=== PATIENT | male | born 1930 | race Caucasian/White ===

== ENCOUNTER 2017-07-10 14:56 | Inpatient (IN) | payer OTHER ==
[~2017-07-10] VITALS: Ht 160 cm; Wt 67.1 kg
[~2017-07-10 14:56] MED LIST: BENA10TA25 PO; COZ50 PO; DOCU-299 PO; FERR-212 PO; FINA5TAB1 PO; GABA100C PO; HUM SC; LANTUS SUBQ; LORA10TA19 PO; MAGN400S60 PO; MIRABULK PO; MULT-1184 PO; TAMS0.4C96 PO; [UNRECOGNIZED DRUG - CODE] PO
[2017-07-10 15:13] VITALS: BP 73/36
--- NOTE | 2017-07-10 15:51 | NUR ---
Patient back from XRAY taken to bed 04 via wheelchair per tech.
--- NOTE | 2017-07-10 15:55 | NUR ---
PT BIB FAMILY FOR EVALUATION OF RIGHT SHOULDER PAIN S/P FALL 1 HOUR PRIOR TO ARRIVAL AT ER. HX HYPOTENSION, DM. DENIES N/V/D; SKIN IS PINK/WARM/DRY; AAOX4; LUNGS CLEAR BL; HR EVEN AND REGULAR; PT DENIES ANY FEVER, CP, SOB, OR COUGH AT THIS TIME; PATIENT STATES PAIN OF 8/10 AT THIS TIME; VSS; PATIENT POSITIONED FOR COMFORT; HOB ELEVATED; BEDRAILS UP X2; BED DOWN. ER MD MADE AWARE OF PT STATUS.
[2017-07-10] MEDS ORDERED: NACL 0.9% 500 ML IV ONE (16:20)
--- NOTE | 2017-07-10 16:43 | NUR ---
X RAY AT BEDSIDE.
[2017-07-10 17:30] LABS: HEMATOCRIT 39.6 % (36-52); HEMOGLOBIN 13.1 g/dL (12.0-18.0); MEAN CORPUSCULAR HEMOGLOBIN 31 pg (27-31); MEAN CORPUSCULAR HGB CONC 33 g/dL (33-37); MEAN CORPUSCULAR VOLUME 94 fL (80-94); PLATELET COUNT (AUTO) 144 K/uL (140-450); RED BLOOD CELL COUNT(AUTO) 4.24 MIL/uL (4.20-6.10); RED CELL DISTRIBUTION WIDTH 13.2 % (11.6-13.7); WHITE BLOOD COUNT (AUTO) 12.7 K/uL (4.8-10.8)
[2017-07-10 17:35] LABS: ANION GAP 16.9 (8-16); CARBON DIOXIDE 23.3 mmol/L (21-32); CHLORIDE 103 mmol/L (98-107); CREATININE 1.4 mg/dL (0.7-1.3); GLUCOSE 320 mg/dL (74-106); POTASSIUM 4.2 mmol/L (3.5-5.1); SODIUM SERUM 139 mmol/L (136-145); UREA NITROGEN, BLOOD 30 mg/dL (7-18)
[2017-07-10 17:42] LABS: LYMPHOCYTES % (MANUAL) 8 % (20-46); MONOCYTES % (MANUAL) 3 % (5-12)
[2017-07-10 17:46] LABS: ALBUMIN 3.2 g/dL (3.4-5.0); ASPARTATE AMINOTRANSFERASE 11 U/L (15-37); TOTAL BILIRUBIN 1.3 mg/dL (0.0-1.0)
[2017-07-10 17:47] LABS: PROTHROMBIN TIME 11.6 secs (10.8-13.4)
[2017-07-10] MEDS ORDERED: NACL 0.9% 1,000 ML IV SCH (18:21)
[2017-07-10] MEDS ORDERED: ONDANSETRON 4 MG/2 ML VIAL IVP PRN (18:25)
[2017-07-10] MEDS ORDERED: ACETAMINOPHEN 325 MG TAB PO PRN (18:25)
--- NOTE | 2017-07-10 18:49 | NUR ---
RECEIVED REPORT FROM ER NURSE LENORA GELLER.
[2017-07-10 18:53] LABS: CHOL/HDL RATIO 3.6 (1-4.5); FREE T4 (FREE THYROXINE) 1.18 ng/dL (0.76-1.46); MAGNESIUM 1.5 mg/dL (1.8-2.4); PHOSPHORUS 2.7 mg/dL (2.5-4.9); THYROID STIMULATING HORMONE 2.93 uIU/mL (0.34-3.74)
--- NOTE | 2017-07-10 18:58 | NUR ---
GAVE REPORT TO YIMI CALDERON
--- NOTE | 2017-07-10 18:59 | NUR ---
APatient will be admitted to care of DR HOFFMAN. Admited to TELE. Will go to room 122B. Belongings list completed. Report to YIMI CALDERON.
[2017-07-10 19:00] VITALS: BP 148/75
--- NOTE | 2017-07-10 19:00 | NUR ---
RECEIVED PT FROM ER ASSISTED BY ER NURSE PER WHEELCHAIR. PT ALERT ORIENTED X4. PT WITH RIGHT ARM SLING. UNABLE TO AMBULATE. WITH DAUGHTER AT BEDSIDE. NO SOB NOTED. PT COMPLAINS OF PAIN ON RIGHT ARM. SAFETY PRECAUTION IN PLACE. VITAL SIGNS TAKEN AND RECORDED. CALL LIGHT WITHIN REACH.
[2017-07-10] MEDS ORDERED: DEXTROSE 50% 50 ML SYR IVP PRN (19:20)
[2017-07-10] MEDS ORDERED: MECLIZINE 25 MG TAB PO PRN (19:30)
--- NOTE | 2017-07-10 19:40 | NUR ---
RECEIVED REPORT FROM DAY RN, PATIENT JUST ADMITTED TO THE TELE UNIT. PATIENT RESTING IN BED, ORIENTED X2. FAMILY MEMBERS AT BEDSIDE. PATIENT STATED, HE HAS PAIN 9/10 ON HIS RIGHT SHOULDER. INFORMED PATIENT THAT I WILL GIVE HIM PAIN MEDICATION. FLUSHED IV WITH 10ML NS, IV INTACT AND PATENT. CALL LIGHT WITHIN REACH, SAFETY MEASURE ENSURED, WILL CONTINUE TO MONITOR.
[2017-07-10] MEDS ORDERED: MAG SULF 2000 MG/WATER PREMIX 50 ML IV ONE (19:50)
[2017-07-10 20:00] VITALS: BP 150/80
[2017-07-10] MEDS: MORPHINE SULFATE 2 MG/ML SYR IVP PRN (20:00)
--- NOTE | 2017-07-10 20:05 | NUR ---
BP 150/80, HR 90, PAIN MEDICATION GIVEN, WILL CONTINUE TO MONITOR.
[2017-07-10] MEDS: DOCUSATE SODIUM 100 MG GELCAP PO SCH (20:24)
[2017-07-10] MEDS: FAMOTIDINE 20 MG TAB PO SCH (20:25)
[2017-07-10] MEDS: TAMSULOSIN 0.4 MG CAP PO SCH (20:25)
[2017-07-10] MEDS ORDERED: LORATADINE 10 MG TAB PO SCH (21:00)
[2017-07-10] MEDS: BLOOD GLUCOSE MONITORING 1 DEV DEV FS SCH (21:02)
--- NOTE | 2017-07-10 21:15 | NUR ---
RESIDENT CARE AIDE AND DR. DONALD SHAH AT BEDSIDE PER MD GAN TO PERFORM EKG TONIGHT OR IN AM
[2017-07-10] MEDS: INSULIN LISPRO SLIDING SCALE 100 UNITS/ML VIAL SUBQ PRN (21:24)
[2017-07-10] MEDS: INSULIN DETEMIR 100 UNITS/ML 10 ML VIAL SUBQ SCH (21:24)
[2017-07-10] MEDS: HYDROcodone/APAP 7.5/325 MG 1 TAB PO PRN (22:01)
--- NOTE | 2017-07-10 22:05 | NUR ---
PATIENT STATED HE STILL FELT MODERATE PAIN 5/10, NORCO GIVEN ORDERED, WILL CONTINUE TO MONITOR.
--- NOTE | 2017-07-10 23:09 | NUR ---
PATIENT OFF THE UNIT TO GET HEAD CT. NO S/S OF ACUTE DISTRESS NOTED WHEN TRANSFERRED
--- NOTE | 2017-07-10 23:20 | NUR ---
PATIENT IS BACK TO THE ROOM. NO S/S OF ACUTE DISTRESS NOTED, WILL CONTINUE TO MONITOR.
[2017-07-10 23:36] LABS: APPEARANCE,URINE HAZY (CLEAR); BILIRUBIN,URINE NEGATIVE (NEGATIVE); BLOOD, URINE TRACE-I (NEGATIVE); COLOR,URINE YELLOW (YELLOW); LEUKOCYTE ESTERASE ,URINE 2+ (NEGATIVE); NITRITE, URINE NEGATIVE (NEGATIVE); UGLUCOSE 2+ (NEGATIVE)
[2017-07-10 23:48] LABS: BARBITURATE, URINE NEG. ng/ml (NEG <=200); BENZODIAZEPINE, URINE NEG. ng/mL (NEG <=200); CANNABINOID, URINE NEG. ng/mL (NEG <=50); COCAINE, URINE NEG. ng/mL (NEG <=300); OPIATE, URINE NEG. ng/mL (NEG <=2000); PHENCYCLIDINE SCREEN,URINE NEG. ng/mL (NEG <=25)
[2017-07-11] VITALS: BP 94/53
[2017-07-11 00:11] LABS: RBC,URINE 0-5 (RARE) /HPF (0-5); WBC,URINE TOO MANY TO COUNT /HPF (0-5); YEAST,URINE Moderate /HPF (None Seen)
[2017-07-11] MEDS: FLUCONAZOLE 100 MG TAB PO SCH (01:10)
[2017-07-11] MEDS: CLINDAMYCIN 600 MG in DEXTROSE 5% 50 ML IV SCH ×4 (01:12→18:12)
[2017-07-11] MEDS ORDERED: CLINDAMYCIN 600 MG/4 ML VIAL ONE (01:12)
--- NOTE | 2017-07-11 01:24 | NUR ---
CLEOCIN STARTED, PATIENT TOLERATED WELL, WILL CONTINUE TO MONITOR.
--- NOTE | 2017-07-11 01:34 | NUR ---
DIFLUCAN IS NOT ADMINISTERED, DR. SHAH IS AWARE AND SAID," PLEASE GIVE THE FIRST DOSE TOMORROW."
--- NOTE | 2017-07-11 02:05 | NUR ---
PATIENT IS SLEEPING , RESPIRATION EVEN AND UNLABORED, NO S/S OF ACUTE DISTRESS NOTED, SAFETY MEASURE ENSURED, WILL CONTINUE TO MONITOR.
[2017-07-11] MEDS: MORPHINE SULFATE 2 MG/ML SYR IVP PRN ×3 (03:06→13:09)
--- NOTE | 2017-07-11 03:10 | NUR ---
PATIENT STATED PAIN 9/10, PAIN MEDICATION GIVEN, WILL CONTINUE TO MONITOR.
[2017-07-11 04:00] VITALS: BP 130/69
[2017-07-11] MEDS ORDERED: DEXT 5% / NACL 0.9% 500 ML IV SCH (04:05)
[2017-07-11] MEDS ORDERED: NACL 0.9% 500 ML IV SCH (06:00)
[2017-07-11 06:24] LABS: BASOPHILS # (AUTO) 0.2 K/uL (0.00-0.22); BASOPHILS % (AUTO) 2.3 % (0.0-2.0); EOSINOPHILS # (AUTO) 0.1 K/uL (0-0.4); EOSINOPHILS % (AUTO) 1.2 % (0.0-4.0); HEMATOCRIT 36.5 % (36-52); HEMOGLOBIN 12.1 g/dL (12.0-18.0); LYMPHOCYTES # (AUTO) 1.1 K/uL (2.0-11.5); LYMPHOCYTES % (AUTO) 15.5 % (20.5-51.1); MEAN CORPUSCULAR HEMOGLOBIN 31 pg (27-31); MEAN CORPUSCULAR HGB CONC 33 g/dL (33-37); MEAN CORPUSCULAR VOLUME 93 fL (80-94); MONOCYTES # (AUTO) 0.8 K/uL (0.8-1.0); MONOCYTES % (AUTO) 11.2 % (1.7-9.3); NEUTROPHILS # (AUTO) 4.8 K/uL (1.8-7.7); NEUTROPHILS % (AUTO) 69.8 % (42.2-75.2); PLATELET COUNT (AUTO) 145 K/uL (140-450); RED BLOOD CELL COUNT(AUTO) 3.93 MIL/uL (4.20-6.10)
[2017-07-11 06:43] LABS: CARBON DIOXIDE 25.6 mmol/L (21-32); CHLORIDE 107 mmol/L (98-107); CREATININE 0.9 mg/dL (0.7-1.3); GLUCOSE 130 mg/dL (74-106); POTASSIUM 3.6 mmol/L (3.5-5.1); SODIUM SERUM 140 mmol/L (136-145); UREA NITROGEN, BLOOD 24 mg/dL (7-18)
[2017-07-11] MEDS: BLOOD GLUCOSE MONITORING 1 DEV DEV FS SCH ×4 (06:44→21:00)
--- NOTE | 2017-07-11 06:55 | NUR ---
PT IS SLEEPING AT THIS TIME NO S/S OF ACUTE DISTRESS NOTED, RESPIRATION EVEN AND UNLABORED, WILL CONTINUE TO MONITOR.
[2017-07-11 06:57] LABS: MAGNESIUM 2.3 mg/dL (1.8-2.4); PHOSPHORUS 2.6 mg/dL (2.5-4.9)
--- NOTE | 2017-07-11 07:35 | NUR ---
ENDORSED PLAN OF CARE TO DAY RN. PATIENT RESTING IN BED, IN STABLE CONDITION, NO S/S OF ACUTE DISTRESS.
--- NOTE | 2017-07-11 07:40 | NUR ---
RECEIVED PT REPORT FROM NIGHT NURSE AT BEDSIDE. PATIENT IS AAOX2 AND SHOWS NO S/S OF ACUTE DISTRESS ON RA. PT SKIN IS INTACT WITH ABRASION TO THE R ARM AND BLE. PATIENT STATES PAIN OF 9/10 ON THE RA. IV NOTED ON THE L H WITH IVF'S INFUSING WELL. PATIENT IS AWARE OF POC FOR TODAY AND VERBALIZED UNDERSTANDING HOWEVER NEEDS CONSTANT REINFORCEMENT. THE BED IS IN LOW POSITION AND CALL LIGHT WITHIN REACH.
[2017-07-11 08:00] VITALS: BP 128/71
[2017-07-11] MEDS ORDERED: FERROUS SULFATE 325 MG TABEC PO SCH (09:00)
[2017-07-11] MEDS ORDERED: VITAMIN B COMPLEX W/C 1 TAB PO SCH (09:00)
[2017-07-11] MEDS ORDERED: [UNRECOGNIZED DRUG - OTHER] PO SCH (09:00)
[2017-07-11] MEDS ORDERED: VIT B COMP PO SCH (09:00)
[2017-07-11] MEDS ORDERED: VIT E PO SCH (09:00)
[2017-07-11] MEDS ORDERED: IRON PO SCH (09:00)
[2017-07-11] MEDS ORDERED: MAGNESIUM OXIDE 400 MG TAB PO SCH (09:19)
[2017-07-11] MEDS: NACL 0.9% 1,000 ML IV SCH ×3 (09:34→17:04)
[2017-07-11] MEDS: LACTOBACILLUS RHAMNOSUS GG 1 EACH CAP PO SCH (09:36)
[2017-07-11] MEDS: FERROUS SULFATE 325 MG TABEC PO SCH (09:36)
[2017-07-11] MEDS: MULTIVITAMIN/MINERALS 1 TAB PO SCH (09:36)
[2017-07-11] MEDS: FAMOTIDINE 20 MG TAB PO SCH (09:37)
[2017-07-11] MEDS: ATORVASTATIN 20 MG TAB PO SCH (09:37)
[2017-07-11] MEDS: GABAPENTIN 100 MG CAP PO SCH (09:37)
[2017-07-11] MEDS: DOCUSATE SODIUM 100 MG GELCAP PO SCH ×2 (09:37→21:00)
[2017-07-11] MEDS: FINASTERIDE 5 MG TAB PO SCH (09:38)
[2017-07-11] MEDS: LORATADINE 10 MG TAB PO SCH (09:39)
[2017-07-11] MEDS: CALCIUM CIT/VIT-D 315MG/200IU 1 TAB PO SCH (09:51)
--- NOTE | 2017-07-11 10:11 | NUR ---
PATIENT STATES 8/10 R ARM PAIN AND MORPHINE 2 MG IVP MINIMALLY HELPS. WILL NOTIFY DR PARTIDA.
--- NOTE | 2017-07-11 10:53 | NUR ---
CM NOTE INITIAL REVIEW FAXED TO [facility] [phone] FLAVIA TOWNSEND [phone]
--- NOTE | 2017-07-11 11:20 | NUR ---
PATIENT HAS BEEN SCREENED AND CATEGORIZED MODERATE NUTRITION RISK. PATIENT WILL BE SEEN WITHIN 3-5 DAYS OF ADMISSION. 07/13/17 - 07/15/[address]
[2017-07-11 12:00] VITALS: BP 140/69
--- NOTE | 2017-07-11 13:08 | NUR ---
PATIENT STATES 10/10 PAIN WILL ADMINISTER MORPHINE 2 MG IVP. REASSESS IN 30 MIN.
[2017-07-11] MEDS: INSULIN LISPRO SLIDING SCALE 100 UNITS/ML VIAL SUBQ PRN (13:20)
--- NOTE | 2017-07-11 13:30 | NUR ---
2 PERSON ASSIST TO BSC. PATIENT WAS COMPLAINING OF PAIN ON THE RIGHT SHOULDER STILL. DR CHAVEZ WAS NOTIFIED OF MORPHINE 2 MG IVP NOT HELPFUL WITH HIS PAIN. STATED HE WILL PLACE IN ORDERS.
[2017-07-11] MEDS ORDERED: KETOROLAC 15 MG/ML VIAL IM SCH (14:10)
--- NOTE | 2017-07-11 14:10 | NUR ---
PATIENT SHOWS NO S/S OF ACUTE DISTRESS ON ROOM AIR. PATIENT IS RESTING COMFORTABLY IN BED WITH DAUGHTER AT BEDSIDE.
--- NOTE | 2017-07-11 15:15 | NUR ---
PATIENT IS SLEEPING AND SHOWS NO S/S OF ACUTE DISTRESS ON ROOM AIR.
[2017-07-11 16:00] VITALS: BP 105/61
--- NOTE | 2017-07-11 17:15 | NUR ---
PATIENT HAS FAMILY AT BEDSIDE EATING DINNER AND TOLERATING WELL. PATIENT DENIES PAIN AT THIS TIME. BED IS LOWERED WITH CALL LIGHT WITHIN REACH. ALL NEEDS MET AT THIS TIME.
--- NOTE | 2017-07-11 19:00 | NUR ---
PATIENT ENDORSED IN STABLE CONDITION TO NIGHT NURSE FOR CONTINUITY OF CARE.
--- NOTE | 2017-07-11 19:05 | NUR ---
RECEIVED REPORT FROM AM NURSE. PT IS AWAKE AND ALERT. ROOM AIR. DAUGHTER IS AT THE BEDSIDE. IV ACCESS ASYMPTOMATIC AND PATENT. PLAN OF CARE DISCUSSED, PT AND FAMILY VERBALIZED UNDERSTANDING. NO SIGNS OF ACUTE DISTRESS, BED ON LOW POSITION, BILATERAL HALF SIDE RAILS UP, CALL LIGHT WITHIN REACH, WILL CONTINUE TO MONITOR.
[2017-07-11 20:00] VITALS: BP 128/72
[2017-07-12] VITALS: BP 121/66
[2017-07-12] MEDS: DOCUSATE SODIUM 100 MG GELCAP PO SCH ×3 (00:23→21:10)
[2017-07-12] MEDS: FAMOTIDINE 20 MG TAB PO SCH ×3 (00:23→21:10)
[2017-07-12] MEDS: TAMSULOSIN 0.4 MG CAP PO SCH ×2 (00:23→21:10)
[2017-07-12] MEDS: NACL 0.9% 1,000 ML IV SCH ×4 (00:23→18:31)
[2017-07-12] MEDS: CLINDAMYCIN 600 MG in DEXTROSE 5% 50 ML IV SCH ×4 (00:24→17:13)
--- NOTE | 2017-07-12 00:25 | NUR ---
PT REFUSED COLACE MEDICATION. BENEFITS AND RISKS EXPLAINED, PT VERBALIZED UNDERSTANDING.
--- NOTE | 2017-07-12 01:05 | NUR ---
IV ACCESS ON LEFT HAND ACCIDENTALLY PULLED OUT BY PATIENT. NEW IV ACCESS STARTED SUCCESSFULLY ON LEFT ARM, PT TOLERATED WELL. WILL CONTINUE TO MONITOR.
[2017-07-12] MEDS: INSULIN DETEMIR 100 UNITS/ML 10 ML VIAL SUBQ SCH ×2 (01:19→21:17)
[2017-07-12] MEDS: HYDROmorphone 1 MG/ML AMP IVP PRN ×2 (01:20→15:34)
--- NOTE | 2017-07-12 02:15 | NUR ---
PT IS SLEEPING. DAUGHTER IS AT THE BEDSIDE. SHOWING NO SIGNS OF ACUTE DISTRESS. BED ON LOW POSITION, BILATERAL HALF SIDE RAILS UP, CALL LIGHT WITHIN REACH. WILL CONTINUE TO MONITOR.
[2017-07-12 04:00] VITALS: BP 133/74
[2017-07-12] MEDS: BLOOD GLUCOSE MONITORING 1 DEV DEV FS SCH ×4 (06:44→21:15)
--- NOTE | 2017-07-12 07:10 | NUR ---
ENDORSED PT TO AM NURSE TO CONTINUITY OF CARE, PT IS IN STABLE CONDITION.
--- NOTE | 2017-07-12 07:15 | NUR ---
RECEIVED PT REPORT FROM NIGHT NURSE AT BEDSIDE. PATIENT IS AAOX2 AND SHOWS NO S/S OF ACUTE DISTRESS ON RA. PT SKIN IS INTACT WITH ABRASION TO THE R ARM AND BLE. PATIENT STATES PAIN OF 4/10 ON THE R ARM. IV NOTED ON THE L FA WITH IVF'S INFUSING WELL. PATIENT IS AWARE OF POC FOR TODAY AND VERBALIZED UNDERSTANDING HOWEVER NEEDS CONSTANT REINFORCEMENT. PATIENT FAMILY AT BEDSIDE AND VERBALIZED UNDERSTANDING OF CARE. THE BED IS IN LOW POSITION AND CALL LIGHT WITHIN REACH.
[2017-07-12 07:28] LABS: ANION GAP 10.9 (8-16); BASOPHILS # (AUTO) 0.1 K/uL (0.00-0.22); BASOPHILS % (AUTO) 1.7 % (0.0-2.0); CARBON DIOXIDE 26.4 mmol/L (21-32); CHLORIDE 102 mmol/L (98-107); CREATININE 0.8 mg/dL (0.7-1.3); EOSINOPHILS % (AUTO) 0.6 % (0.0-4.0); GLUCOSE 93 mg/dL (74-106); HEMATOCRIT 35.3 % (36-52); HEMOGLOBIN 11.6 g/dL (12.0-18.0); LYMPHOCYTES # (AUTO) 0.8 K/uL (2.0-11.5); LYMPHOCYTES % (AUTO) 11.7 % (20.5-51.1); MEAN CORPUSCULAR HEMOGLOBIN 31 pg (27-31); MEAN CORPUSCULAR HGB CONC 33 g/dL (33-37); MEAN CORPUSCULAR VOLUME 93 fL (80-94); MONOCYTES # (AUTO) 0.6 K/uL (0.8-1.0); MONOCYTES % (AUTO) 8.5 % (1.7-9.3); NEUTROPHILS # (AUTO) 5.4 K/uL (1.8-7.7); NEUTROPHILS % (AUTO) 77.5 % (42.2-75.2); PLATELET COUNT (AUTO) 136 K/uL (140-450); POTASSIUM 3.3 mmol/L (3.5-5.1); RED BLOOD CELL COUNT(AUTO) 3.79 MIL/uL (4.20-6.10); RED CELL DISTRIBUTION WIDTH 13.2 % (11.6-13.7); SODIUM SERUM 136 mmol/L (136-145); UREA NITROGEN, BLOOD 15 mg/dL (7-18); WHITE BLOOD COUNT (AUTO) 6.9 K/uL (4.8-10.8)
--- NOTE | 2017-07-12 07:30 | NUR ---
RECEIVED REPORT FROM AM NURSE. PT IS SLEEPING. DAUGHTER IS AT THE BEDSIDE. SHOWING NO SIGN SOF ACUTE DISTRESS. URINAL AT THE BEDSIDE. IV ACCESS ASYMPTOMATIC AND PATENT. ON ROOM AIR PLAN OF CARE DISCUSSED, PT VERBALIZED UNDERSTANDING. BED ON LOW POSITION, BILATERAL HALF SIDE RAILS UP, CALL LIGHT WITH IN REACH, WILL CONTINUE TO MONITOR Addendum: 07/13/17 at 0649 by Aislinn Harding RN DISREGARD ABOVE NOTE. WRING TIME
[2017-07-12 07:48] VITALS: BP 100/53
[2017-07-12] MEDS: FERROUS SULFATE 325 MG TABEC PO SCH (08:47)
[2017-07-12] MEDS: CALCIUM CIT/VIT-D 315MG/200IU 1 TAB PO SCH (08:48)
[2017-07-12] MEDS: LORATADINE 10 MG TAB PO SCH (08:50)
[2017-07-12] MEDS: GABAPENTIN 100 MG CAP PO SCH (08:50)
[2017-07-12] MEDS: FINASTERIDE 5 MG TAB PO SCH (08:51)
[2017-07-12] MEDS: MULTIVITAMIN/MINERALS 1 TAB PO SCH (08:51)
[2017-07-12] MEDS: ATORVASTATIN 20 MG TAB PO SCH (08:51)
[2017-07-12] MEDS: LACTOBACILLUS RHAMNOSUS GG 1 EACH CAP PO SCH (08:51)
[2017-07-12] MEDS: FLUCONAZOLE 100 MG TAB PO SCH (08:51)
[2017-07-12] MEDS: HYDROcodone/APAP 7.5/325 MG 1 TAB PO PRN ×2 (08:52→13:02)
--- NOTE | 2017-07-12 08:55 | NUR ---
ADMINISTERED SCHEDULED MEDICATIONS. PATIENT TOLERATED WELL. PATIENT WAS GIVEN NORCO 7.5/325 MG PO FOR 4/10 R ARM PAIN AND FOR PHYSICAL THERAPY. PATIENT'S NEEDS MET AT THIS TIME. DAUGHTER AT BEDSIDE. WILL CONTINUE TO MONITOR.
--- NOTE | 2017-07-12 10:30 | NUR ---
PT BEING SEEN DR PARTIDA. POC WAS EXPLAINED BY AND FAMILY AND PT VERBALIZED UNDERSTANDING. ALL NEEDS MET AT THIS TIME WILL CONTINUE TO MONITOR. DR CATALAN WAS NOTIFIED OF POTASSIUM OF 3.3 AND DOSE OF TORADOL 15 MG IM GIVEN YESTERDAY WAS HELPFUL FOR PT. IS TO PLACE ORDERS.
--- NOTE | 2017-07-12 11:25 | NUR ---
ADMINISTERED SCHEDULED MEDICATIONS. PATIENT STATES TOLERABLE PAIN OF 3/10 R ARM PAIN. WILL CONTINUE TO ASSESS FOR PAIN. PATIENT FAMILY MEMBER AT BEDSIDE. PT DENIES SOB. BED IN LOW POSITION AND CALL LIGHT WITHIN REACH. ALL NEEDS MET AT THIS TIME.
[2017-07-12] MEDS: INSULIN LISPRO SLIDING SCALE 100 UNITS/ML VIAL SUBQ PRN ×2 (11:45→21:24)
[2017-07-12 12:00] VITALS: BP 118/69
[2017-07-12] MEDS ORDERED: POTASSIUM CHLORIDE 40 MEQ, LIDOCAINE 1% 25 MG in NACL 0.9% 250 ML IV SCH (12:30)
--- NOTE | 2017-07-12 13:05 | NUR ---
ADMINISTERED 40 MEQ KCL IV AND PT C/O 4/10 R ARM PAIN AND WAS ADMINISTERED NORCO 7.5/325 MG PO. WILL REASSESS IN ONE HR.
--- NOTE | 2017-07-12 14:05 | NUR ---
PATIENT IS SLEEPING AND SHOWS NO S/S OF ACUTE DISTRESS ON ROOM AIR.
--- NOTE | 2017-07-12 15:00 | NUR ---
PATIENT INSISTED ON WEARING A BUTTON UP SHIRT AND WAS NOT ABLE TO. PT STARTED TO C/O 8/10 PAIN. WILL ADMINISTER DILAUDID 1 MG IVP.
--- NOTE | 2017-07-12 15:35 | NUR ---
ADMINISTERED DILAUDID 1 MG IVP FOR 8/10 R ARM PAIN. WILL REASSESS IN 30 MIN.
[2017-07-12 16:00] VITALS: BP 135/76
--- NOTE | 2017-07-12 16:05 | NUR ---
PATIENT IS SLEEPING AND SHOWS NO S/S OF ACUTE DISTRESS ON ROOM AIR. FAMILY AT BEDSIDE.
--- NOTE | 2017-07-12 16:32 | NUR ---
FAXED CONCURRENT REVIEW TO [facility] [phone] PHONE KRISTIAN [phone]
--- NOTE | 2017-07-12 17:25 | NUR ---
ADMINISTERED SCHEDULED MEDICATIONS. IV ABX INFUSING WELL.
[2017-07-12] MEDS ORDERED: KETOROLAC 30 MG/ML VIAL IVP ONE (18:15)
[2017-07-12] MEDS ORDERED: PNEUMOCOCCAL VACCINE 23 MCG/0.5 ML VIAL IMVAC SCH (18:15)
[2017-07-12] MEDS ORDERED: KETOROLAC 15 MG/ML VIAL IVP SCH (18:30)
--- NOTE | 2017-07-12 19:13 | NUR ---
PT IS SLEEPING AND DAUGHTER IS AT BEDSIDE. PT SHOWS NO S/S OF ACUTE DISTRESS ON ROOM AIR. PT REPORT WAS GIVEN AT BEDSIDE, PT ENDORSED IN STABLE CONDITION.
--- NOTE | 2017-07-12 19:30 | NUR ---
RECEIVED REPORT FROM AM NURSE. PT IS SLEEPING. DAUGHTER IS AT THE BEDSIDE. SHOWING NO SIGN SOF ACUTE DISTRESS. URINAL AT THE BEDSIDE. IV ACCESS ASYMPTOMATIC AND PATENT. ON ROOM AIR PLAN OF CARE DISCUSSED, PT VERBALIZED UNDERSTANDING. BED ON LOW POSITION, BILATERAL HALF SIDE RAILS UP, CALL LIGHT WITH IN REACH, WILL CONTINUE TO MONITOR
[2017-07-12 20:00] VITALS: BP 155/70
--- NOTE | 2017-07-12 20:52 | NUR ---
1230 MET WITH PT AND FAMILY MEMBERS DAUGHTER BELLO, SON KAYLA AND GRANDSON TO DISCUSS DISCHARGE PLAN. PT LIVES WITH KAYLA WHO IS THE PT'S PRIMARY CAREGIVER. PER KAYLA PTS PRIOR LEVEL OF FUNCTION WAS AMBULATORY WITH NO ASSISTIVE DEVICE AND HE ASSISTED WITH ADLS INCLUDING MEAL PREP, MEDICATION ADMINISTRATION, TRANSPORTATION STATED THAT PT DOES HAVE SOME DEMENTIA AND NEEDS SUPERVISION. KAYLA VERBALIZED HIS CONCERN THAT PT NOW REQUIRES ASSISTANCE FOR AMBULATION. DISCUSSED THAT THE RECOMMENDATION IS FOR PT TO HAVE PHYSICAL THERAPY IN SNF WITH RESIDENTIAL PLAN TO RETURN HOME. DAUGHTER AND GRANDSON VOICED THEIR RESISTANCE TO SNF PLACEMENT DUE TO REPORTS FROM FRIENDS AND FAMILY THAT THEY QUESTION CARE IN SNFS. DISCUSSED WITH THEM THAT PT WOULD BE ADMITTED FOR SKILLED SERVICES AND EXPLAINED DIFFERENCE IN RESIDENTIAL VS SHORT TERM CARE. KAYLA SEEMED OPEN TO SHORT STAY FOR THERAPY. EXPLAINED TO THEM THE ADVANTAGE OF SNF VS PT AND THAT PT WOULD RECEIVE DAILY THERAPY AT SNF BUT MOSTLY LIKELY NOT WITH HH SERVICES. ADVISED OF THE RISK OF FALLING WITH PTS CURRENT LIMITED LEVEL OF FUNCTION. FAMILY STATED THEY WOULD DISCUSS THE OPTIONS WITH EACH OTHER AND MAKE A DECISION. PROVIDED MY CONTACT INFORMATION IF THEY HAVE ANY FURTHER QUESTIONS.
[2017-07-13] VITALS: BP 131/62
[2017-07-13] MEDS: CLINDAMYCIN 600 MG in DEXTROSE 5% 50 ML IV SCH ×4 (00:37→18:39)
[2017-07-13] MEDS: NACL 0.9% 1,000 ML IV SCH ×3 (00:37→14:49)
[2017-07-13] MEDS: KETOROLAC 15 MG/ML VIAL IVP PRN ×4 (00:37→20:06)
--- NOTE | 2017-07-13 02:11 | NUR ---
PT SLEEPING. SHOWING NO SIGNS OF ACUTE DISTRESS, BED ON LOW POSITION, BILATERAL HALF SIDE RAILS UP, CALL LIGHT WITHIN REACH. WILL CONTINUE TO MONITOR.
[2017-07-13 04:00] VITALS: BP 103/51
[2017-07-13] MEDS: BLOOD GLUCOSE MONITORING 1 DEV DEV FS SCH ×4 (06:40→20:45)
--- NOTE | 2017-07-13 07:30 | NUR ---
RECEIVED REPORT FROM TWISTING DEPARTMENT END FINDER NURSE, PT IS RESTING IN BED, A/OX2, PT AMBULATES WITH ASSIST, PT HAS IV ON HIS RT FA, PATENT, INTACT, FLUSHING WELL, NO S/S OF RESPIRATORY DISTRESS OR DISCOMFORT NOTED, PT HAS A RIGHT ARM SLING IN PLACE, PATIENT'S DAUGHTER (AUGUSTIN) IS AT BESIDE, DISCUSSED PLAN OF CARE WITH PT AND FAMILY MEMBER, PT AND FAMILY VERBALIZED UNDERSTANDING, SAFETY/FALL PRECAUTIONS ARE IN PLACE, CALL LIGHT IS WITHIN REACH, WILL CONTINUE TO MONITOR.
--- NOTE | 2017-07-13 07:35 | NUR ---
ENDORSED PT TO JUNIOR UNDERWRITER NURSE FOR CONTINUITY OF CARE, PT STABLE AT THIS TIME. Addendum: 07/13/17 at 2107 by Cristiane Chapa RN REPORT GIVEN AT [phone], NOT [id number]
[2017-07-13 08:00] VITALS: BP 113/48
[2017-07-13] MEDS: FERROUS SULFATE 325 MG TABEC PO SCH (08:45)
[2017-07-13] MEDS: MULTIVITAMIN/MINERALS 1 TAB PO SCH (08:45)
[2017-07-13] MEDS: FINASTERIDE 5 MG TAB PO SCH (08:45)
[2017-07-13] MEDS: FAMOTIDINE 20 MG TAB PO SCH ×2 (08:46→20:38)
[2017-07-13] MEDS: LACTOBACILLUS RHAMNOSUS GG 1 EACH CAP PO SCH (08:46)
[2017-07-13] MEDS: FLUCONAZOLE 100 MG TAB PO SCH (08:46)
[2017-07-13] MEDS: GABAPENTIN 100 MG CAP PO SCH (08:47)
[2017-07-13] MEDS: ATORVASTATIN 20 MG TAB PO SCH (08:47)
[2017-07-13] MEDS: DOCUSATE SODIUM 100 MG GELCAP PO SCH ×2 (08:47→20:38)
[2017-07-13] MEDS: LORATADINE 10 MG TAB PO SCH (08:47)
[2017-07-13] MEDS: CALCIUM CIT/VIT-D 315MG/200IU 1 TAB PO SCH (08:49)
--- NOTE | 2017-07-13 10:00 | NUR ---
PT AMBULATING DOWN THE GARCÍA WITH PHYSICAL THERAPY.
[2017-07-13] MEDS ORDERED: FLUCONAZOLE 100 MG TAB PO SCH (10:30)
[2017-07-13 12:00] VITALS: BP 135/77
--- NOTE | 2017-07-13 12:00 | NUR ---
PT IS SITTING IN BED, WATCHING TV, FAMILY IS AT BEDSIDE, CALL LIGHT WITHIN REACH.
[2017-07-13] MEDS: INSULIN LISPRO SLIDING SCALE 100 UNITS/ML VIAL SUBQ PRN ×3 (12:25→20:45)
--- NOTE | 2017-07-13 14:00 | NUR ---
PT SLEEPING IN BED AT THIS TIME, PATIENT'S DAUGHTER IS AT BEDSIDE, CALL LIGHT WITHIN REACH.
--- NOTE | 2017-07-13 15:25 | NUR ---
1330 MET WITH PTS DAUGHTER KRISTINA AND PROVIDED HER WITH NAMES OF CONTRACTED SNFS WITH [facility]. STATED SHE PREFERRED [facility] SINCE IT IS CLOSER TO THEIR HOME. FAXED INFORMATION TO [facility] AND SPOKE WITH DAVID PHONE [phone]. PER DAVID PT WILL GO TO ROOM 103 BED 1. STATED THAT SHE HAS TALKED TO KRISTIAN ALEJANDRO AT [facility]. PER KRISTIAN AT [facility] [phone] USE [employer] [facility]. KRISTIAN STATED SHE WILL CALL BACK WITH TRANSPORT AUTH#. CALLED [facility] AND SPOKE WITH ANNMARIE AND SCHEDULED GURNEY [employer] AT 2030. INFORMED HER THAT WHEN [facility] CALLS WITH AUTH WILL CALL HER BACK BUT NOT TO POSTPONE THE TRANSPORT AND IF NEEDED UNTIL AUTH OBTAIN CAN PUT A [facility] BILL.
[2017-07-13 16:00] VITALS: BP 124/56
[2017-07-13] MEDS ORDERED: LACT10CA PO (17:17)
[2017-07-13] MEDS ORDERED: CLIN300C2 IVP (17:24)
--- NOTE | 2017-07-13 19:35 | NUR ---
ENDORSED PT TO KNOCKER OUT NURSE FOR CONTINUITY OF CARE, PT STABLE AT THIS TIME.
[2017-07-13 20:00] VITALS: BP 116/64
[2017-07-13] MEDS: TAMSULOSIN 0.4 MG CAP PO SCH (20:38)
--- NOTE | 2017-07-13 20:40 | NUR ---
CALLED [facility] AND GAVE REPORT TO YIMI RUBY.
[2017-07-13] MEDS: INSULIN DETEMIR 100 UNITS/ML 10 ML VIAL SUBQ SCH (20:44)
--- NOTE | 2017-07-13 21:55 | NUR ---
PT ASSISTED TO STAND AND ASSISTED TO USE URINAL, VOIDED FREELY WITH 200ML YELLOW URINE, PUT ON A NEW DIAPER AND PAJAMA, ATE BEDTIME SNACK WITH ASSIST FROM DAUGHTER, ALL NEEDS ATTENDED, AWAITING TRANSPORT TO ARRIVE.
--- NOTE | 2017-07-13 23:10 | NUR ---
[facility] HERE, ASSISTED TO [facility], DISCHARGE TO [facility] IN STABLE CONDITION ACCOMPANIED BY DAUGHTER.
--- NOTE | 2017-07-18 12:11 | NUR ---
CALLED KRISTIAN ALEJANDRO AT [facility] REGARDING NEVER RECEIVED THE AUTH# FOR [facility]. AUTH# PROVIDED [id number]. CALLED [facility] AND SPOKE WITH ALBERTO AND PROVIDED HER WITH THE AUTH #.
== END 2017-07-13 23:10 | DRG 562 ==
LOC: MED 14:56 → MTU 18:27
PROVIDERS: ADMIT Student in an Organized Health Care Education/Training Program; ATTEND Student in an Organized Health Care Education/Training Program
PROC: 2W3AXYZ Immobilization of Right Upper Arm using Other Device (ICD-10-PCS; principal; 2017-07-10)
PROC: 3E0234Z Introduction of Serum, Toxoid and Vaccine into Muscle, Percutaneous Approach (ICD-10-PCS; 2017-07-13)
DX: S42.291A Other displaced fracture of upper end of right humerus, initial encounter for closed fracture (principal); G93.41 Metabolic encephalopathy; N17.0 Acute kidney failure with tubular necrosis; I62.03 Nontraumatic chronic subdural hemorrhage; E44.0 Moderate protein-calorie malnutrition; D68.59 Other primary thrombophilia; E11.51 Type 2 diabetes mellitus with diabetic peripheral angiopathy without gangrene; E11.65 Type 2 diabetes mellitus with hyperglycemia; N39.0 Urinary tract infection, site not specified; E83.42 Hypomagnesemia; G90.9 Disorder of the autonomic nervous system, unspecified; R31.9 Hematuria, unspecified; E80.6 Other disorders of bilirubin metabolism; E78.5 Hyperlipidemia, unspecified; N40.0 Benign prostatic hyperplasia without lower urinary tract symptoms; I11.9 Hypertensive heart disease without heart failure; F03.90 Unspecified dementia, unspecified severity, without behavioral disturbance, psychotic disturbance, mood disturbance, and anxiety; W01.0XXA Fall on same level from slipping, tripping and stumbling without subsequent striking against object, initial encounter; Y93.89 Activity, other specified; Z23 Encounter for immunization; Y99.8 Other external cause status; Y92.009 Unspecified place in unspecified non-institutional (private) residence as the place of occurrence of the external cause; Z88.6 Allergy status to analgesic agent; Z88.0 Allergy status to penicillin; Z83.3 Family history of diabetes mellitus; Z68.26 Body mass index [BMI] 26.0-26.9, adult; Z79.899 Other long term (current) drug therapy; D50.9 Iron deficiency anemia, unspecified; Z79.4 Long term (current) use of insulin
CPT/HCPCS: 36415; 70450; 71010; 73030; 73060; 80048; 80053; 80305; 81001; 82150; 82948; 83036; 83605; 83690; 83735; 83880; 84100; 84439; 84443; 84484; 85025; 85610; 85730; 87040; 87081; 87086; 90732; 93005; 93880; 93925; 93970; 96360; 97110; 97116; 97140; 97530; 99285; J1170; J1815; J1885; J2001; J2270; J3475; J3480; J3490; J7030; J7042; J7060; Q0092

== ENCOUNTER 2018-07-30 09:35 | Emergency (ER) | payer OTHER ==
[~2018-07-30] VITALS: Ht 165.1 cm; Wt 61.2 kg
[~2018-07-30 09:35] MED LIST changes: -BENA10TA25 PO; +CLIN300C2 IVP; -COZ50 PO; +LACT10CA PO
--- NOTE | 2018-07-30 09:42 | NUR ---
PT AMBULATES TO BED 11 WITH WALKER ASSISTANCE
[2018-07-30 09:45] VITALS: BP 119/61
[2018-07-30] MEDS ORDERED: LIDOCAINE VISCOUS 2% 20 ML UDC ONE (09:57)
--- NOTE | 2018-07-30 10:09 | NUR ---
PATIENT PRESENTS TO ED WITH URINARY RETENTION . PT STATES . INTERMITTENT URINARY RETENTION "LONG TIME" PER SON TUESDAY SEEN BY PMD AND WILLIAM INSERTED---RETURNED TO [place] [facility] AND WILLIAM PINEDA'D SON DOES NOT KNOW WHY----- DENIES N/V/D; SKIN IS PINK/WARM/DRY; AAOX4 WITH EVEN AND STEADY GAIT; LUNGS CLEAR BL; HR EVEN AND REGULAR; PT DENIES ANY FEVER, CP, SOB, OR COUGH AT THIS TIME; PATIENT STATES PAIN OF 10/10 AT THIS TIME; VSS; PATIENT POSITIONED FOR COMFORT; HOB ELEVATED; BEDRAILS UP X2; BED DOWN. ER MD MADE AWARE OF PT STATUS.
--- NOTE | 2018-07-30 10:30 | NUR ---
Patient discharged with v/s stable. Written and verbal after care instructions given and explained. Patient alert, oriented and verbalized understanding of instructions. Wheel Chair Assisted with to car. All questions addressed prior to discharge. ID band removed. Patient advised to follow up with PMD. Rx of CIPRO/MOTRIN given. Patient educated on indication of medication including possible reaction and side effects. Opportunity to ask questions provided and answered. LEG BAG HANDED TO SON---REQUESTED TO LEAVE COLLECTING BAG FOR NOW AND HE WILL CHANGE LATER. SON STATES HE HAS HELPED HIS FATHER CHANGE TO LEG BAG BEFORE
[2018-07-30 10:32] VITALS: BP 115/62
[2018-07-31] MEDS ORDERED: LIDOCAINE VISCOUS 2% 20 ML UDC PO ONE (08:25)
== END 2018-07-30 10:30 | disposition home or self-care (01) ==
LOC: MED 09:35
DX: N39.0 Urinary tract infection, site not specified (principal); E11.9 Type 2 diabetes mellitus without complications; I10 Essential (primary) hypertension; Z88.0 Allergy status to penicillin; Z88.5 Allergy status to narcotic agent; Z79.899 Other long term (current) drug therapy; Z79.4 Long term (current) use of insulin
CPT/HCPCS: 51702; 81002; 99284

== ENCOUNTER 2018-11-09 10:37 | Emergency (ER) | payer OTHER ==
[~2018-11-09] VITALS: Ht 172.7 cm; Wt 63.5 kg
[2018-11-09 10:42] VITALS: BP 130/55
--- NOTE | 2018-11-09 10:55 | NUR ---
PT W/C TO BED 7
--- NOTE | 2018-11-09 11:00 | NUR ---
88 yo m bib daughter s/p mechanical fall on tuesday. per dtr, pt was using his walker to the restroom, fell straight back onto his back. denies hitting head/loc. denies n/v. per dtr, pt has refused to walk or move since the fall. -injury/ecchymosis/deformity noted. pt reports bl leg pain 04/25. hx dm, bph, dementia rx on file, dtr reports no changes in meds since last visit
--- NOTE | 2018-11-09 11:04 | NUR ---
Patient being evaluated by physician at bedside.
--- NOTE | 2018-11-09 11:04 | NUR ---
Patient being evaluated by DR LECHUGA at bedside.
--- NOTE | 2018-11-09 11:34 | NUR ---
PT TAKEN TO XRAY VIA [facility]IA
[2018-11-09 13:03] VITALS: BP 136/64
--- NOTE | 2018-11-09 13:03 | NUR ---
Patient discharged with v/s stable. Written and verbal after care instructions given and explained. Patient alert, oriented and verbalized understanding of instructions. Wheel Chair Assisted with to car. All questions addressed prior to discharge. ID band removed. Patient advised to follow up with PMD. Rx of MOTRIN given. Patient educated on indication of medication including possible reaction and side effects. Opportunity to ask questions provided and answered.
== END 2018-11-09 13:03 | disposition home or self-care (01) ==
LOC: MED 10:37
DX: M54.5 Low back pain (principal); E11.9 Type 2 diabetes mellitus without complications; F03.90 Unspecified dementia, unspecified severity, without behavioral disturbance, psychotic disturbance, mood disturbance, and anxiety; I10 Essential (primary) hypertension; Z79.4 Long term (current) use of insulin; Z79.899 Other long term (current) drug therapy; Z88.0 Allergy status to penicillin; Z88.5 Allergy status to narcotic agent
CPT/HCPCS: 72100; 81002; 82948; 99283